=== PATIENT | male | born 1970 | race Caucasian/White ===

== ENCOUNTER 2017-01-19 17:01 | Emergency (ER) | payer SELFPAY ==
[~2017-01-19] VITALS: Ht 182.9 cm; Wt 90.9 kg
[2017-01-19 17:10] VITALS: BP 141/96; PULSE 84; RESP 16; O2SAT 98
--- NOTE | 2017-01-19 20:04 | ED.REPORT ---
HPI-Extremity Problem Lower Date of Service Jan 19, 2017 ED Provider: Malou Trevino MD Patient is a 47 year old male who presents to the ED complaining of increasing redness around scratches he obtained 6 days ago. The abrasions are located on both calves. Patient reports that the redness didn't occur until this morning. He denies fever or chills. Patient reports that he was hiking and scratched his legs on rock or ice. Nursing Notes Stated Complaint: BILATERAL LEG INJURIES Chief Complaint: Extremity Trauma Nursing Notes Reviewed: Yes Allergies: Coded Allergies: No Known Allergies (Unverified , 01/19/17) Scheduled Cephalexin (Cephalexin) 500 Mg Capsule 500 MG PO TID Mupirocin (Mupirocin Ointment) 22 Gm Oint...g. 1 APPLIC TOP TID General Time Seen by MD: 20:04 Chief Complaint Leg injury right, Leg injury left Hx Obtained From: Patient Arrived By: Walk-in Onset Occurred: 6 days ago Symptom Duration: Since onset Location: : Leg left: Leg right Quality: Painful Recent Healthcare: Recent doctor visit Similar Sx Previous: No Past Medical History Past Medical History none reported Smoking History Current Every Day Smoker Ambulatory Status Independent Review of Systems Review of Systems Note: +erythema bilateral calves +abrasions on both calves Constitutional: Denies: Chills, Fever Musculoskeletal: Reports: Extremity pain (both legs) Skin: Denies Itching, Denies Rash Neurologic: Denies: Lightheaded, Numbness, Problem walking, Weakness Complete sys rev & neg: except as marked. Respiratory: Denies: Non-productive cough, Shortness of breath Physical Exam Initial Vital Signs Vital Signs (First) Date Time Temp Pulse Resp B/P Pulse Ox O2 Delivery O2 Flow Rate FiO2 01/19/17 17:10 36.7 84 16 141/96 98 Room Air Initial VS: Reviewed, Vital signs abnormal Lower Extremity / Pelvis / MS: Neurologic intact, Vascular intact two large areas of erythema with some abrasions and crusting with bullae to the right calf Ankle / Foot: Atraumatic, Full range of motion General/Constitutional: Awake, Alert, No acute distress Respiratory / Chest: Atraumatic, Breath sounds NL, Breath sounds = bilat, No respiratory distress Cardiovascular: Heart rate NL, Regular rhythm, Heart sounds NL Skin: Warm, Dry Neurologic: Oriented X3, Speech NL Head / Eyes: Atraumatic, Normocephalic, PERRL, EOMI Psychiatric: Affect NL, Mood NL Re-Eval/Medical Decision Med Decision/Clinical Course The patient presents with increased redness and discharge from abrasions to his bilateral. He has bolus and crusting which are consistent with bullous impetigo. He does not have any history of skin infections or abscess and so was started on Keflex. He does not have any systemic signs of illness. Re-Evaluation/Progress : Time of Eval: 20:26 Re-Evaluation/Progress Note: Discussed plan for discharge. Patient understands and agrees to plan. All questions were addressed. Counseled Regarding: Diagnosis, Need for follow-up, When/why to return to ED Discharge & Departure Impression: Primary Impression: Impetigo Disposition: Home Discharge Condition All VS Reviewed: Yes Condition: Stable Patient Instructions: Impetigo (ED) Additional Instructions: Make sure you wash your hands a lot, especially after touching the wounds. Keep the areas clean and covered. Take the antibiotic Keflex along with the Penicillin. You can take Tylenol as needed for pain. Follow up with your primary care physician if the wounds have not improved over the next three days Return to the emergency department if the wounds are getting worse. Referrals: [facility] Scribe Attestation Portions of this note were transcribed by Mariann Anderson. I, Dr. Trevino personally performed the history, physical exam and medical decision-making; I reviewed and confirmed the accuracy of the information in the transcribed note. Signed by: [place], 01/19/17 Malou Trevino MD Jan 19, 2017 20:04 Helen Anderson Jan 19, 2017 20:21
[2017-01-19 20:21] VITALS: BP 136/93; PULSE 78; RESP 16; O2SAT 99
[2017-01-19] MEDS ORDERED: MUPI22OI2 TOP (20:25)
[2017-01-19] MEDS ORDERED: CEPH500C PO (20:25)
[2017-01-19] MEDS ORDERED: Mupirocin 2% 22 Gm Ointment TOPICAL ONE (20:25)
[2017-01-19 20:50] VITALS: BP 136/93; PULSE 78; RESP 16; O2SAT 99
== END 2017-01-19 20:51 | disposition home or self-care (01) ==
LOC: SED 17:01
DX: S80.811A Abrasion, right lower leg, initial encounter (principal); S80.812A Abrasion, left lower leg, initial encounter; L01.00 Impetigo, unspecified; W01.118A Fall on same level from slipping, tripping and stumbling with subsequent striking against other sharp object, initial encounter; Y93.01 Activity, walking, marching and hiking; Y92.828 Other wilderness area as the place of occurrence of the external cause; Y99.8 Other external cause status; F17.200 Nicotine dependence, unspecified, uncomplicated